=== PATIENT | female | born 1980 | race Caucasian/White ===

== ENCOUNTER 2021-08-27 13:13 | Outpatient (CLI) | payer OTHER ==
[2021-08-28 16:10] LABS: SARS-CoV-2 PCR by NAA Not Detected (NotDetected)
== END 2021-08-27 13:14 | disposition home or self-care (01) ==
LOC: CSHLAB 13:13
PROVIDERS: ATTEND Internal Medicine Gastroenterology
DX: Z20.822 Contact with and (suspected) exposure to COVID-19 (principal); R13.10 Dysphagia, unspecified
CPT/HCPCS: U0003; U0005

== ENCOUNTER 2021-08-30 08:55 | Day surgery (SDC) | payer OTHER ==
[2021-08-24 13:36] VITALS: BMI 38.6
[~2021-08-30 08:55] MED LIST: PROPOFOL 40 ML ONE
[2021-08-30] MEDS ORDERED: Lidocaine 1% MPF 2 ML VIAL ONE (09:39)
[2021-08-30] MEDS ORDERED: Midazolam HCl 2 mg/2 ml Vial ONE ×2 (10:01→10:07)
[2021-08-30] MEDS ORDERED: Esmolol 100 MG/10 ML VIAL ONE (10:36)
[2021-08-30] MEDS ORDERED: Lidocaine 1% PF 5 ML VIAL ONE (11:49)
== END 2021-08-30 11:12 | disposition home or self-care (01) ==
LOC: CSHSDC 08:55
PROVIDERS: ATTEND Internal Medicine Gastroenterology
DX: K31.7 Polyp of stomach and duodenum (principal); K44.9 Diaphragmatic hernia without obstruction or gangrene; K29.70 Gastritis, unspecified, without bleeding; E11.9 Type 2 diabetes mellitus without complications; R13.10 Dysphagia, unspecified; F31.9 Bipolar disorder, unspecified; F41.9 Anxiety disorder, unspecified; E66.9 Obesity, unspecified; I10 Essential (primary) hypertension; E78.5 Hyperlipidemia, unspecified; G43.909 Migraine, unspecified, not intractable, without status migrainosus; G40.909 Epilepsy, unspecified, not intractable, without status epilepticus; G93.5 Compression of brain; Z79.899 Other long term (current) drug therapy; Z79.4 Long term (current) use of insulin; Z88.5 Allergy status to narcotic agent; Z88.8 Allergy status to other drugs, medicaments and biological substances; Z91.040 Latex allergy status; Z68.38 Body mass index [BMI] 38.0-38.9, adult
CPT/HCPCS: 88305; J2250; J2704